=== PATIENT | male | born 1975 | race Caucasian/White ===

== ENCOUNTER 2019-12-31 09:32 | Emergency (ER) | payer BC ==
--- NOTE | 2019-12-31 10:53 | ER Document Report ---
ED General - General Chief Complaint: Fainting Stated Complaint: POSSIBLE ANXIETY Time Seen by Provider: 12/31/19 10:00 - HPI Notes: Chief complaint: Dizziness and fluctuation of hearing History of present illness: 44-year-old male in excellent general health taking no regular medications with no known allergies presenting with 24-hour history of intermittent episodes of "lightheadedness", presyncope and transient bilateral decreased hearing loss. These episodes usually last less than 5 minutes. No associated headache, fever, chills, nausea, vomiting, diarrhea, chest pain, cough or shortness of breath. Patient says he gets "tightness in his epigastric area during these episodes. Unaffected by eating or drinking and his oral intake has been normal. PERC SCORE H No hormone administration A Age<50 D No DVT/PE previously C no hemoptysis L no unilateral leg edema O O2 sat greater than 95% T no tachycardia S no surgery/Trauma recently No known covert exposure. Patient had to travel for business in October and he took a nasal swab test upon returning from his trip. This was reported as negative. Patient says he had a routine physical 2 years ago and his physician at that time identified a bicuspid aortic valve. He had an echocardiogram and was told that this was not of significance at that point but would require future follow- up. Patient is a non-smoker. He consumes alcohol socially. He denies abuse of alcohol. No history of drug abuse. No major surgery. 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 He lives locally with his and 2 teenage sons. Patient is normally physically active running several times a week and lifting weights intermittently. - Related Data Allergies/Adverse Reactions: No Known Allergies Allergy (Unverified 12/31/19 09:45) Past Medical History - General Information source: Patient, [facility] Records - Social History Smoking Status: Never Smoker Chew tobacco use (# tins/day): No Frequency of alcohol use: 7 drinks/week Drug Abuse: None Lives with: Family Family History: Reviewed & Not Pertinent - Past Medical History Cardiac Medical History: Reports: Other - History of bicuspid aortic valve Psychiatric Medical History: Reports: None Past Surgical History: Reports: None Review of Systems - Review of Systems Notes: Constitutional: Negative for fever. HENT: As per HPI. Eyes: Negative for visual changes. Cardiovascular: Negative for chest pain. Respiratory: Negative for shortness of breath. Gastrointestinal: As per HPI. Genitourinary: Negative for dysuria. Musculoskeletal: Negative for back pain. Skin: Negative for rash. Neurological: Negative for headaches, weakness or numbness. 10 point ROS negative except as marked above and in HPI. Physical Exam - Vital signs Vitals: Temp Pulse Resp BP Pulse Ox 98.4 F 76 18 147/97 H 97 12/31/19 09:38 12/31/19 09:38 12/31/19 09:38 12/31/19 09:38 12/31/19 09:38 - Notes Notes: GENERAL: Well-developed well-nourished middle-age male appearing in no acute distress. SKIN: Good turgor no rashes. HEAD: Normocephalic atraumatic. EYES: PERRLA. EOMI. Conjunctivae and sclerae clear. EARS: CANALS AND TMS CLEAR. NOSE: CLEAR. MOUTH: Moist mucosa. Good dentition. No stridor or edema. No drooling. NECK: Supple. No masses or thyromegaly. No adenopathy. Carotids 2+ without bruits. No JVD. BACK: Symmetrical without tenderness. CHEST: Respirations unlabored. Breath sounds clear and symmetrical. HEART: Regular rhythm. No murmur gallop or rub. ABDOMEN: Soft nontender without masses, organomegaly or rebound. Bowel sounds normally active. No bruits. GENITALIA: Deferred. EXTREMITIES: No edema. No calf tenderness. Cap refill less than 1.5 seconds. Dorsalis pedis and posterior tibial pulses 3+ and symmetrical. NEUROLOGICAL: GCS 15. Alert and oriented x3. Normal gait. Fluent speech. Cranial nerves II through XII intact. Sensorimotor and cerebellar normal. Normal tone. PSYCHIATRIC: Appropriate affect. Course - Re-evaluation Re-evalutation: 12/31/19 12:40 Patient has a completely normal exam. Chest x-ray is normal. EKG shows a left axis deviation. There are no acute ST changes no dysrhythmias noted either on EKG or on bedside cardiac monitoring while in the emergency department. His troponin and d-dimer are normal. Comprehensive metabolic profile, CBC, urinalysis and urine drug screen are all normal. Patient has been under some emotional stress due to some family matters recently. He has no prior documented history of anxiety or depression. I noted the patient's blood pressure is marginally elevated and this is really the only objective abnormality identified today. I feel his present symptoms are most likely due to a viral syndrome. While he symptoms not typical COVID this would have to be a consideration. We agreed that we will obtain a COVID swab today and he will self isolate until we know the results this in 3 to 4 days. Increase oral fluids. I suggested that he make follow-up medical appointment with his primary provider at [facility] and specifically address need for follow-up on his blood pressure. Findings, clinical impression and plan of treatment have been discussed with patient/family. Understanding of current findings and recommendations has been acknowledged by them and there is agreement regarding disposition and follow-up. - Vital Signs Vital signs: Temp Pulse Resp BP Pulse Ox 98.4 F 76 14 132/94 H 97 12/31/19 09:40 12/31/19 09:38 12/31/19 12:01 12/31/19 12:01 12/31/19 12:01 - Laboratory Result Diagrams: 12/31/19 10:52 12/31/19 10:52 - EKG Interpretation by Me Additional EKG results interpreted by me: Twelve-lead EKG reviewed by me contemporaneously: 1113 hrs. Indication for study: Presyncope Rhythm: Normal sinus Rate: 72 Intervals: Normal QRS axis: -[address]/T wave changes: None Comparison with prior tracing: None available Interpretation: Left axis deviation 12/31/19 11:18 Discharge - Discharge Clinical Impression: Pre-syncope Condition: Stable Disposition: HOME, SELF-CARE Additional Instructions: Increase oral fluids. Self-isolation at home for the next 3 to 4 days until results of your COVID nasal swab are reported. Return here as needed for new or worsening symptoms: Pain that is worsening or unimproved Uncontrolled vomiting High fever or shaking chills Overall worsening Schedule follow-up appointment with [facility] for reevaluation and specifically to address need for follow-up on your blood p ressure. Forms: Elevated Blood Pressure
[2019-12-31 11:11] LABS: ABSOLUTE BASOPHILS # (AUTO) 0.1 10^3/uL (0.0-0.2); ABSOLUTE EOSINOPHILS # (AUTO) 0.1 10^3/uL (0.0-0.6); ABSOLUTE LYMPHOCYTES (AUTO) 1.5 10^3/uL (0.5-4.7); ABSOLUTE MONOCYTES (AUTO) 0.6 10^3/uL (0.1-1.4); ABSOLUTE NEUT (AUTO) 2.9 10^3/uL (1.7-8.2); EOSINOPHILS % (AUTO) 1.8 % (0-6); HEMATOCRIT 45.3 % (37.9-51.0); HEMOGLOBIN 16.2 g/dL (13.5-17.0); MEAN CORPUSCULAR HEMOGLOBIN 31.7 pg (27.0-33.4); MEAN CORPUSCULAR HGB CONC 35.7 g/dL (32.0-36.0); MEAN CORPUSCULAR VOLUME 89 fl (80-97); MONOCYTES % (AUTO) 11.6 % (3-13); RED CELL DISTRIBUTION WIDTH 12.3 % (11.5-14.0); SEGMENTED NEUTROPHILS % (AUTO) 56.6 % (42-78); TOTAL CELLS COUNTED % (AUTO) 100 %; WHITE BLOOD COUNT 5.1 10^3/uL (4.0-10.5)
[2019-12-31 11:20] LABS: INTERNATIONAL RATION (INR) 1.01; PROTHROMBIN TIME 13.5 SEC (11.4-15.4)
[2019-12-31 11:21] LABS: PARTIAL THROMBOPLASTIN TIME 27.4 SEC (23.5-35.8)
--- NOTE | 2019-12-31 11:22 | RADIOLOGY REPORT (SQ) ---
EXAM DESCRIPTION: CHEST 2 VIEWS IMAGES COMPLETED DATE/TIME: 12/31/2019 11:05 am REASON FOR STUDY: Bicuspid aortic valve COMPARISON: None. TECHNIQUE: Frontal and lateral radiographic views of the chest acquired. NUMBER OF VIEWS: Two view. LIMITATIONS: None. FINDINGS: LUNGS AND PLEURA: No opacities, masses or pneumothorax. No pleural effusion. MEDIASTINUM AND HILAR STRUCTURES: No masses or contour abnormalities. HEART AND VASCULAR STRUCTURES: Heart normal size. No evidence for failure. BONES: No acute findings. HARDWARE: None in the chest. OTHER: No other significant finding. IMPRESSION: NO SIGNIFICANT RADIOGRAPHIC FINDING IN THE CHEST. TECHNICAL DOCUMENTATION: JOB ID: [id number] 2010 [employer]- All Rights Reserved Reading location - IP/workstation name: [email or web address]
[2019-12-31 11:25] LABS: ALBUMIN 4.5 g/dL (3.5-5.0); ALKALINE PHOSPHATASE 69 U/L (38-126); ANION GAP 8 (5-19); ASPARTATE AMINO TRANSFERASE 33 U/L (17-59); BILIRUBIN,DIRECT 0.3 mg/dL (0.0-0.4); BILIRUBIN,TOTAL 0.7 mg/dL (0.2-1.3); BLOOD UREA NITROGEN 15 mg/dL (7-20); CALCIUM 9.3 mg/dL (8.4-10.2); CARBON DIOXIDE 25 mmol/L (22-30); CHLORIDE 106 mmol/L (98-107); GLUCOSE 107 mg/dL (75-110); POTASSIUM 4.1 mmol/L (3.6-5.0); TOTAL PROTEIN 7.1 g/dL (6.3-8.2)
[2019-12-31 11:26] LABS: ALCOHOL < 10 mg/dL (NONE DETECTED)
[2019-12-31 11:29] LABS: APPEARANCE,URINE CLEAR; BILIRUBIN,URINE NEGATIVE (NEGATIVE); COLOR,URINE STRAW; GLUCOSE, URINE NEGATIVE (NEGATIVE); KETONES,URINE NEGATIVE (NEGATIVE); PROTEIN,URINE NEGATIVE (NEGATIVE); URINE SPECIFIC GRAVITY 1.008; UROBILINOGEN,URINE NEGATIVE mg/dL (<2.0)
[2019-12-31 11:34] LABS: PLATELET COUNT 178 10^3/uL (150-450)
[2019-12-31 11:43] LABS: URINE AMPHETAMINES SCREEN NEGATIVE; URINE BARBITURATES SCREEN NEGATIVE; URINE BENZODIAZEPINES SCREEN NEGATIVE; URINE COCAINE SCREEN NEGATIVE; URINE MARIJUANA (THC) SCREEN NEGATIVE; URINE METHADONE SCREEN NEGATIVE; URINE PHENCYCLIDINE SCREEN NEGATIVE
[2019-12-31 13:09] VITALS: BP 132/91
--- NOTE | 2019-12-31 20:18 | EKG REPORT ---
SEVERITY:- ABNORMAL ECG - SINUS RHYTHM PROBABLE INFERIOR INFARCT, OLD : Confirmed by: Thalia Mcgarry MD 31-Dec-2019 20:17:58
== END 2019-12-31 13:34 | disposition home or self-care (01) ==
LOC: ER 09:32
DX: R55 Syncope and collapse (principal); R42 Dizziness and giddiness; H91.93 Unspecified hearing loss, bilateral; R19.8 Other specified symptoms and signs involving the digestive system and abdomen; Q23.1 Congenital insufficiency of aortic valve; Z63.8 Other specified problems related to primary support group; Z20.828 Contact with and (suspected) exposure to other viral communicable diseases
CPT/HCPCS: 93005; 99285; 36415; 80307 ×2; 83735; 85025; 85610; 85730; 80053; 81001; 84484; 85379; 71046; 93010; U0003; C9803; 87635